=== PATIENT | female | born 2000 ===

== ENCOUNTER 2025-01-26 12:35 | Outpatient (CLI) | payer OTHER | END 2025-01-26 12:37 | disposition home or self-care (01) | LOC: PRENATAL 12:35 | PROVIDERS: ATTEND Obstetrics & Gynecology Maternal & Fetal Medicine | DX: O44.02 Complete placenta previa NOS or without hemorrhage, second trimester (principal); O99.213 Obesity complicating pregnancy, third trimester; Z3A.21 21 weeks gestation of pregnancy ==

== ENCOUNTER 2025-03-18 12:45 | Outpatient (CLI) | payer OTHER | END 2025-03-18 12:46 | disposition home or self-care (01) | LOC: PRENATAL 12:45 | PROVIDERS: ATTEND Obstetrics & Gynecology Maternal & Fetal Medicine | DX: O26.843 Uterine size-date discrepancy, third trimester (principal); O99.213 Obesity complicating pregnancy, third trimester; Z3A.28 28 weeks gestation of pregnancy ==